=== PATIENT | male | born 1960 | race Caucasian/White ===

== ENCOUNTER 2020-06-05 09:10 | Outpatient (RCR) | payer BC ==
[~2020-06-05 09:10] MED LIST: ADAL30TA OR; CLON-412 OR; COGE1INJ IJ; FLON0.05; GEOD60CA OR; HALO10TA4 OR; IBUP400T OR; KLON1TAB OR; LISI20TA5 OR; MULTIVIT OR; QVAR INH; RANI150C OR; SIMV20TA2 OR; TRAZ50TA OR; VENTAER IN; ZOLO50TA OR
== END 2020-06-10 ==
LOC: M PT 09:10
PROVIDERS: ATTEND Physician Assistant
DX: M47.26 Other spondylosis with radiculopathy, lumbar region (principal); M51.36 Other intervertebral disc degeneration, lumbar region

== ENCOUNTER 2020-06-28 10:02 | Outpatient (RCR) | payer BC | END 2020-07-11 | LOC: M PT 10:02 | PROVIDERS: ATTEND Physician Assistant | DX: M47.26 Other spondylosis with radiculopathy, lumbar region (principal); M51.36 Other intervertebral disc degeneration, lumbar region ==

== ENCOUNTER → 2021-04-03 | Outpatient (REF) | payer MEDICARE | LOC: M LAB REF 13:26 | PROVIDERS: ATTEND Nurse Practitioner Family | DX: E83.42 Hypomagnesemia (principal) ==

== ENCOUNTER → 2022-07-14 | Outpatient (REF) | payer MEDICARE ==
[2022-07-14 17:53] LABS: CREATININE, URINE 51.3 MG/DL
[2022-07-14 17:54] LABS: MAU/CREAT RATIO 11.6 MCG/MG (0.0-30.0)
== END ==
LOC: M LAB REF 16:43
PROVIDERS: ATTEND Nurse Practitioner Family
DX: E11.22 Type 2 diabetes mellitus with diabetic chronic kidney disease (principal)

== ENCOUNTER → 2023-04-01 | Outpatient (REF) | payer MEDICARE ==
[2023-04-01 18:29] LABS: CREATININE, URINE 24.3 MG/DL; MALB URINE SIEMENS < 3.0 MG/L; MAU/CREAT RATIO 12.3 MCG/MG (0.0-30.0)
== END ==
LOC: M LAB REF 17:00
PROVIDERS: ATTEND Internal Medicine Endocrinology, Diabetes & Metabolism
DX: E11.65 Type 2 diabetes mellitus with hyperglycemia (principal); E04.1 Nontoxic single thyroid nodule